=== PATIENT | male | born 1940 | race Caucasian/White ===

== ENCOUNTER → 2016-09-23 | Outpatient (CLI) | payer OTHER | LOC: FIMAGING 16:05 | PROVIDERS: ATTEND Orthopaedic Surgery | DX: M22.42 Chondromalacia patellae, left knee (principal); M25.562 Pain in left knee; S83.242S Other tear of medial meniscus, current injury, left knee, sequela; W19.XXXS Unspecified fall, sequela ==

== ENCOUNTER → 2017-10-19 | Outpatient (CLI) | payer OTHER | LOC: BRMIMAGING 14:06 | PROVIDERS: ATTEND Family Medicine | DX: Z13.820 Encounter for screening for osteoporosis (principal); M81.0 Age-related osteoporosis without current pathological fracture ==

== ENCOUNTER 2018-07-27 07:58 | Day surgery (SDC) | payer OTHER ==
[2018-07-27] MEDS ORDERED: DIAZEPAM 5 MG TAB PO ONE (08:03)
[2018-07-27] MEDS ORDERED: ASPIRIN EC 325 MG TAB PO ONE (08:03)
[2018-07-27] MEDS ORDERED: FAMOTIDINE 20 MG TAB PO ONE (08:03)
[2018-07-27] MEDS ORDERED: NS 1,000 ML IV ONE (08:03)
[2018-07-27] MEDS ORDERED: diphenhydrAMINE 25 MG CAP PO ONE (08:03)
[2018-07-27 08:51] LABS: PLATELET COUNT 215 10^3/uL (150-400)
[2018-07-27] MEDS ORDERED: fentaNYL 100 MCG/2 ML INJ ONE (09:06)
[2018-07-27] MEDS ORDERED: LIDOCAINE 1% 300 MG/30 ML SDV ONE (09:06)
[2018-07-27] MEDS ORDERED: MIDAZOLAM 2 MG/2 ML VIAL ONE (09:06)
[2018-07-27] MEDS ORDERED: IOPAMIDOL (ISOVUE-370) 150 ML BTL IV ONE (09:06)
[2018-07-27 09:08] LABS: INR 0.95 (0.83-1.16); PROTIME(PATIENT) 12.9 SEC (12.0-15.0)
--- NOTE | 2018-07-27 09:42 | PDPROPOC ---
Sedation Plan of Care Sedation Plan of Care: vital signs stable, mental status noted, patient educated of risks, benefits, alternatives, patient can tolerate sedation ASA Classification: ASA 2 Planned drugs: fentanyl, midazolam Mallampati Score: Class 2 Mallampati Reference Image: Patient passed 3-3-2 rule?: Yes
--- NOTE | 2018-07-27 09:42 | PDHPUP ---
History & Physical Update H&P update statement: This history and physical update is based on an assessment of the patient which was completed after admission or registration (within 24 hours), but prior to the surgery/procedure. H&P update: H&P reviewed & patient examined, no change in patient's condition since H&P completed
[2018-07-27] MEDS ORDERED: ATROPINE SULFATE 1 MG/10 ML SYR IVP PRN (10:45)
[2018-07-27] MEDS ORDERED: NITROGLYCERIN 0.4 MG BTL SL PRN (10:45)
[2018-07-27] MEDS ORDERED: HYDROCODONE/APAP 5/325 TAB PO PRN (10:45)
[2018-07-27] MEDS ORDERED: OXYCODONE/APAP 5/325 TAB PO PRN (10:45)
[2018-07-27] MEDS ORDERED: ONDANSETRON 4 MG/2 ML VIAL IVP PRN (10:45)
--- NOTE | 2018-07-27 20:37 | CPIP ---
[f rep st] INVASIVE CARDIAC PROCEDURE DATE OF PROCEDURE: 07/27/2018 PROCEDURE: 1. Coronary angiography. 2. Left ventriculography. INDICATION: 1. Known coronary artery disease with previous inferior myocardial infarction. 2. Nonsustained ventricular tachycardia. 3. Abnormal nuclear stress test with inferior infarct. ACCESS: Patient was prepped and draped in sterile fashion. 1% lidocaine was used to anesthetize the right inguinal region. A 6-Bhut[place] introducer sheath was placed selectively into the right common fe moral artery via modified Seldinger technique. CORONARY ANGIOGRAPHY: A 6-[place]ut[place] JL4 was advanced to the left main coronary artery and images obtain ed. The left main coronary artery bifurcated into an LAD and circumflex coronary arteries. The left main coronary artery appeared normal. The left anterior descending coronary artery gave rise to 1 p rominent diagonal branch as well as 2 smaller diagonal branches. The left anterior descending hardin ry artery had a single discrete 50% stenosis in the mid to distal vessel. The diagonal arteries were free of any significant disease. The circumflex coronary artery was a large vessel and was codomina nt. The circumflex coronary artery gave rise to 2 prominent OM branches. The circumflex coronary ar abby had mild luminal irregularities throughout. There was no stenosis greater than 15% to 20%. A 6 -B[place]ut[place] JR4 was advanced to the right coronary artery and images obtained. The right coronary artery was codominant. The right coronary artery was relatively small. The right coronary artery had a si ngle discrete 30% stenosis in the midvessel. LEFT VENTRICULOGRAPHY: A 6-Bhutanese pigtail catheter was advanced to the left ventricle and images obt ained. The left ventricle was normal in size, had mildly reduced systolic function. Estimated eject ion fraction was 53%. The inferior mid segment was akinetic. COMPLICATIONS: None. CONCLUSIONS: 1. Mild to moderate coronary artery disease without flow limitation. 2. Mildly reduced left ventricular systolic function with an estimated ejection fraction 53%. The i nferior mid segment is akinetic. /[id number]/MODL
[2018-07-27] MEDS ORDERED: ATORVASTATIN CALCIUM 20 MG TAB PO SCH (21:00)
[2018-07-27] MEDS ORDERED: DUTASTERIDE 0.5 MG CAP PO SCH (21:00)
[2018-07-27] MEDS ORDERED: NEBIVOLOL HCL 5 MG TAB PO SCH (21:00)
[2018-07-27] MEDS ORDERED: OMEGA-3 FATTY ACIDS 1,000 MG CAP PO SCH (21:00)
[2018-07-27] MEDS ORDERED: ASPIRIN 81 MG CHEWABLE TAB PO SCH (21:00)
[2018-07-28] MEDS ORDERED: FLUTICASONE NASAL 120 SPRAYS/16 GM MDI EACHNARE SCH (09:00)
[2018-07-28] MEDS ORDERED: LISINOPRIL 40 MG TAB PO SCH (09:00)
[2018-07-28] MEDS ORDERED: MULTIVITAMINS 1 EACH TAB PO SCH (09:00)
[2018-07-28] MEDS ORDERED: NON-FORMULARY NEW DRUG (Esomeprazole Magnesium [Nexium 24hr] 20 MG) PO SCH (09:00)
--- NOTE | 2018-08-01 11:21 | CPEKG ---
Test Reason : OPEN Blood Pressure : / mmHG Vent. Rate : 074 BPM Atrial Rate : 075 BPM P-R Int : 170 ms QRS Dur : 092 ms QT Int : 379 ms P-R-T Axes : 071 064 007 degrees QTc Int : 421 ms Sinus rhythm Ventricular premature complex Borderline T abnormalities, inferior leads Confirmed by Chino Villafana ([id number]) on 08/01/2018 11:21:15 AM Referred By: Chino Villafana Confirmed By:Chino Villafana
== END 2018-07-27 15:25 | disposition home or self-care (01) ==
LOC: FCATH 07:58
PROVIDERS: ATTEND Internal Medicine Cardiovascular Disease
PROC: B2151ZZ Fluoroscopy of Left Heart using Low Osmolar Contrast (ICD-10-PCS; principal; 2018-07-27)
PROC: B2111ZZ Fluoroscopy of Multiple Coronary Arteries using Low Osmolar Contrast (ICD-10-PCS; principal; 2018-07-27)
PROC: 4A023N7 Measurement of Cardiac Sampling and Pressure, Left Heart, Percutaneous Approach (ICD-10-PCS; principal; 2018-07-27)
DX: R55 Syncope and collapse (principal); I47.2 Ventricular tachycardia; I25.10 Atherosclerotic heart disease of native coronary artery without angina pectoris; I25.2 Old myocardial infarction; E78.5 Hyperlipidemia, unspecified; I10 Essential (primary) hypertension; G47.33 Obstructive sleep apnea (adult) (pediatric)
CPT/HCPCS: J1644; J2250; J3010; Q9967

== ENCOUNTER 2018-08-20 07:03 | Day surgery (SDC) | payer OTHER ==
[~2018-08-20 07:03] MED LIST: NS 1,000 ML IV ONE
[2018-08-20 07:46] LABS: PLATELET COUNT 218 10^3/uL (150-400)
[2018-08-20 07:57] LABS: INR 0.95 (0.83-1.16); PROTIME(PATIENT) 12.3 SEC (12.0-15.0)
[2018-08-20] MEDS ORDERED: HEPARIN 10,000 UNIT/10 ML MDV (1,000 UNIT/ML) ONE (08:08)
[2018-08-20] MEDS ORDERED: LIDOCAINE 1% 300 MG/30 ML SDV ONE (08:08)
[2018-08-20] MEDS ORDERED: ISOPROTERENOL HCL/D5W 0.2 MG/50 ML BAG IV ONE (08:09)
[2018-08-20] MEDS ORDERED: BUPIVACAINE 0.75% 10 ML SDV ONE (08:09)
--- NOTE | 2018-08-20 08:27 | PDGENHP ---
History & Physical Chief Complaint: syncope Relevant Physical Exam: s1s2 rrr cta ao3 Cardiorespiratory Assessment: for diagnostic ep study
--- NOTE | 2018-08-20 08:31 | PDANEPAE ---
ANE History of Present Illness V tach EP study ANE Past Medical History - Cardiovascular History Hx Hypertension: Yes Hx Arrhythmias: Yes Hx Chest Pain: No Hx Coronary Artery / Peripheral Vascular Disease: Yes Hx CHF / Valvular Disease: No Hx Palpitations: No - Pulmonary History Hx COPD: No Hx Asthma/Reactive Airway Disease: No Hx Recent Upper Respiratory Infection: No Hx Oxygen in Use at Home: No Hx Sleep Apnea: Yes ANE Review of Systems Review of systems is: negative Review of Systems: ANE Patient History - Allergies Allergies/Adverse Reactions: No Known Allergies Allergy (Verified 07/20/18 10:39) - Home Medications Home medications: home medication list seen and reviewed Home Medications: Aspirin [Aspirin 81mg (*)] 81 mg PO HS 07/20/18 [Last Taken 08/19/18] Atorvastatin Calcium [Lipitor 20 mg (*)] 20 mg PO HS 07/20/18 [Last Taken ] Dutasteride [Avodart 0.5 MG (*)] 0.5 mg PO HS 07/20/18 [Last Taken 08/19/18] Esomeprazole Magnesium [Nexium 24Hr] 20 mg PO DAILY 07/20/18 [Last Taken ] Fluticasone Nasal [Flonase Nasal [place] (RX)] 2 sprays NASAL DAILY 07/20/18 [ Last Taken 08/19/18] Herbals/Supplements -Info Only 1 ea PO DAILY 07/20/18 [Last Taken 08/19/18] Lisinopril [Zestril] 40 mg PO DAILY 07/20/18 [Last Taken 08/19/18] Multivitamins [Multivitamin (*)] 1 each PO DAILY 07/20/18 [Last Taken 08/19/18] Nebivolol HCl [Bystolic 5 mg (*)] 5 mg PO HS 07/20/18 [Last Taken 08/14/18] Collins-3 Fatty Acids [Fish Oil 1000 mg (*)] 2,000 mg PO BID 07/20/18 [Last Taken 08/19/18] - Smoking Hx Smoking Status: Former smoker ANE Labs/Vital Signs - Labs Result Diagrams: 08/20/18 07:30 08/20/18 07:30 - Vital Signs Height: 168 cm Weight: 67.1 kg ANE Physical Exam - Airway Neck exam: FROM Mallampati Score: Class 2 Mouth exam: normal dental/mouth exam - Pulmonary Pulmonary: no respiratory distress - Cardiovascular Cardiovascular: regular rate and rhythym - ASA Status ASA Status: III ANE Anesthesia Plan Anesthesia Plan: general endotracheal anesthesia
[2018-08-20] MEDS ORDERED: fentaNYL 100 MCG/2 ML INJ ONE (08:49)
[2018-08-20] MEDS ORDERED: ROCURONIUM 50 MG/5 ML VIAL ONE (08:49)
[2018-08-20] MEDS ORDERED: ONDANSETRON 4 MG/2 ML VIAL ONE (08:50)
[2018-08-20] MEDS ORDERED: DEXAMETHASONE 4 MG/ML VIAL ONE (08:50)
[2018-08-20] MEDS ORDERED: PHENYLEPHRINE 10 MG/ML SDV ONE (09:08)
[2018-08-20] MEDS ORDERED: PROPOFOL 200 MG/20 ML VIAL ONE (09:08)
--- NOTE | 2018-08-20 09:51 | POSTANESTH ---
Post Anesthetic Evaluation Cardiovascular Status: Normal, Stable Respiratory Status: Normal, Stable Level of Consciousness/Mental Status: Can Participate in Eval, Alert and Oriented Pain Control: Adequate, Prn Tx Ordered Nausea/Vomiting Control: Adequate, Prn Tx Ordered Complications Possibly Related to Anesthesia: None Noted
--- NOTE | 2018-08-20 10:23 | EPPROC ---
Electrophysiology Procedure Note: DIAGNOSTIC ELECTROPHYSIOLOGIC STUDY Procedures performed: 1. Fluoroscopy 2. EP evaluation with RA/RV/LA pace/record, with arrhythmia induction 3. EP evaluation with RA/RV pace record, insert/reposition catheter, with arrhythmia induction 4. Programmed stimulation + pacing after IV drug INDICATION: Presyncope Nonsustained VT seen on monitor Coronary artery disease PROCEDURE: Catheters & Anesthesia: The patient arrived in the Electrophysiology Laboratory in the fasting state. The right clavicular region, right groin, & left groin area were prepped & draped in the usual sterile manner. Dr. Agustina Guzman administered general anesthesia. Appropriate non-invasive blood pressure, pulse oximetry & end- tidal CO2 monitoring was established. All catheters were placed percutaneously using the modified Seldinger technique , and advanced into position under fluoroscopic guidance. One #7 [place] deflectable octapolar electrode catheter was advanced to the His-bundle position via the left femoral vein (2mm spacing). This catheter was also moved to RV apex. One #7 [place] deflectable catheter with 10 pairs of electrodes was placed via the right femoral vein into the coronary sinus. Programmed stimulation was performed from the right atrium, right ventricle and coronary sinus (left atrium). Parahisian pacing demonstrated constant H-A interval with changing V-A intervals and stimulus-A intervals during capture and loss of capture of proximal RBB proving retrograde conduction over AV node. Heparin 3000 units was administered No sustained reentrant tachycardia was induced during programmed stimulation at baseline or during graded doses of isoproterenol up to 2 mcg/min. Ventricular programmed stimulation was performed using standard protocol (2 pacing sites, 2 basic cycle lengths, up to 3 extrastimuli at twice pacing threshold). Ventricular burst pacing and long/short sequence pacing was also performed. The catheters were removed. Pursestring suture was applied to subcutaneous tissue at access site.. Vascular access sheaths were removed. The patient was transferred to the cardiovascular holding area in stable condition. There were no apparent complications. Results: A. Spontaneous Intervals: SCL 680 ms AH 70 ms HV 45 ms B. Antegrade AV alberto function (decremental pacing) FPERP 420 ms WBB CL 410 ms C. Retrograde AV alberto function (decremental pacing) VA block CONCLUSIONS 1. Normal sinus and AV node function. 2. No evidence of accessory AV pathway presence. 3. No sustained ventricular arrhythmias induced. 4. Nonsustained atrial tachycardia induced, not targeted for ablation. Atrial fibrillation induced, required cardioversion. 5. No apparent complications. Patient Problems: Problems Problem Status Onset Pre-syncope Acute
--- NOTE | 2018-08-23 09:00 | CPEKG ---
Test Reason : OPEN Blood Pressure : / mmHG Vent. Rate : 072 BPM Atrial Rate : 072 BPM P-R Int : 175 ms QRS Dur : 090 ms QT Int : 381 ms P-R-T Axes : 069 057 031 degrees QTc Int : 417 ms Sinus rhythm Confirmed by Chino Garcia ([id number]) on 08/23/2018 9:00:27 AM Referred By: Geoff Siu Confirmed By:Chino Garcia
== END 2018-08-20 14:00 | disposition home or self-care (01) ==
LOC: FCATH 07:03
PROVIDERS: ATTEND Internal Medicine Cardiovascular Disease
PROC: 5A1213Z Performance of Cardiac Pacing, Intermittent (ICD-10-PCS; principal; 2018-08-20)
PROC: 4A023FZ Measurement of Cardiac Rhythm, Percutaneous Approach (ICD-10-PCS; principal; 2018-08-20)
DX: R55 Syncope and collapse (principal); I47.9 Paroxysmal tachycardia, unspecified; I25.10 Atherosclerotic heart disease of native coronary artery without angina pectoris; I25.2 Old myocardial infarction; Z87.891 Personal history of nicotine dependence
CPT/HCPCS: C1731; J1100; J1644; J2370; J2405; J2704; J3010

== ENCOUNTER 2018-11-04 13:10 | Emergency (ER) | payer OTHER | END 2018-11-04 14:25 | disposition home or self-care (01) | LOC: CED 13:10 ==